=== PATIENT | male | born 1995 | race African-American/Black ===

== ENCOUNTER 2017-08-11 20:48 | Emergency (ER) | payer OTHER ==
[~2017-08-11] VITALS: Ht 172.7 cm; Wt 66.0 kg
[2017-08-11] MEDS ORDERED: IBUPROFEN 600MG TABLET PO ONE (22:30)
[2017-08-12 01:00] VITALS: BP 118/75
== END 2017-08-12 01:17 | disposition home or self-care (01) ==
LOC: ER 21:26
DX: S80.11XA Contusion of right lower leg, initial encounter (principal); F41.9 Anxiety disorder, unspecified; V03.99XA Pedestrian with other conveyance injured in collision with car, pick-up truck or van, unspecified whether traffic or nontraffic accident, initial encounter; Y93.89 Activity, other specified; Y99.8 Other external cause status; Y92.488 Other paved roadways as the place of occurrence of the external cause
CPT/HCPCS: 73590; 99284